=== PATIENT | female | born 1990 | race Caucasian/White ===

== ENCOUNTER 2023-06-26 14:57 | Emergency (ER) | payer OTHER ==
[~2023-06-26] VITALS: Ht 162.5 cm; Wt 116.8 kg
[2023-06-26] MEDS ORDERED: VENT7GM INH (15:16)
[2023-06-26] MEDS ORDERED: SEREVENT DISKU50 MCG INH (15:16)
[2023-06-26 15:56] LABS: BASO # 0.1 10*3/uL (0.0-0.1); BASO % 0.9 % (0.0-1.0); EOS # 0.1 10*3/uL (0.0-0.4); EOS % 2.5 % (1.0-4.0); HEMATOCRIT 42.2 % (37.0-47.0); LYMPH # 2.2 10*3/uL (1.3-4.4); LYMPH % 38.5 % (27.0-41.0); MEAN CELL VOLUME 88.7 fl (81.0-99.0); MEAN CORPUSCULAR HGB 28.4 pg (27.0-31.0); MEAN PLATELET VOLUME 12.2 fl (9.6-12.3); MONO # 0.4 10*3/uL (0.1-1.0); MONO % 7.3 % (3.0-9.0); NEUT # 2.8 10*3/uL (2.3-7.9); NEUT % 50.4 % (47.0-73.0); PLATELET COUNT AUTOMATED 177 10*3/uL (130-400); RED BLOOD COUNT 4.76 10*6/uL (4.10-5.10); RED CELL DISTRI WIDTH 13.4 % (0-14.5); WHITE BLOOD COUNT 5.6 10*3/uL (4.8-10.8)
[2023-06-26 16:10] LABS: ACT PARTIAL THROMBO TIME 28.9 SECONDS (20.0-32.1)
[2023-06-26 16:34] LABS: ALKALINE PHOSPHATASE 90 U/L (46-116); BUN 9 mg/dl (9-23); CHLORIDE 107 mmol/L (98-107); LIPASE 23 U/L (12-53); POTASSIUM 3.8 mmol/L (3.4-5.1); TOTAL PROTEIN 6.8 gm/dL (6.0-8.0)
[2023-06-26 16:37] LABS: BILIRUBIN Negative (Negative); BLOOD 1+ (Negative); CLARITY Cloudy (Clear); COLOR Yellow (Yellow); GLUCOSE Negative (Negative); KETONE Trace (Negative); LEUKO ESTERASE 1+ (Negative); NITRITE Negative (Negative); PH 5.5 (4.5-8.0); SPECIFIC GRAVITY 1.025 (1.001-1.030)
[2023-06-26 16:44] LABS: URINE AMPHETAMINES Negative (1000ng/ml); URINE BARBITURATES Negative (200ng/ml); URINE BENZODIAZEPINES Negative (200ng/ml); URINE CANNABINOIDS (THC) Positive (50ng/ml); URINE COCAINE Negative (300ng/ml); URINE METHADONE Negative (300ng/ml); URINE OPIATES Negative (300ng/ml); URINE PHENCYCLIDINE Negative (25ng/ml)
[2023-06-26 16:45] LABS: SGPT/ALT < 7 U/L (10-49)
[2023-06-26 16:51] LABS: BACTERIA 1+
[2023-06-26 16:52] LABS: MUCOUS TRACE; RBC 0-2 rbc/hpf (0-2)
[2023-06-26] MEDS ORDERED: CIPRO500 MG PO (18:02)
[2023-06-26] MEDS ORDERED: REGLAN10 M1 PO (18:16)
== END 2023-06-26 19:25 | disposition home or self-care (01) ==
LOC: ED 14:57
PROVIDERS: Internal Medicine
DX: N39.0 Urinary tract infection, site not specified (principal); R11.10 Vomiting, unspecified; F12.90 Cannabis use, unspecified, uncomplicated; J45.909 Unspecified asthma, uncomplicated; E11.9 Type 2 diabetes mellitus without complications; Z79.899 Other long term (current) drug therapy

== ENCOUNTER 2024-04-17 16:58 | Emergency (ER) | payer OTHER ==
[~2024-04-17] VITALS: Ht 162.5 cm; Wt 117.9 kg
[~2024-04-17 16:58] MED LIST: CIPRO500 MG PO; REGLAN10 M1 PO; SEREVENT DISKU50 MCG INH; VENT7GM INH
[2024-04-17 19:37] LABS: BASO # 0.1 10*3/uL (0.0-0.1); BASO % 0.8 % (0.0-1.0); EOS # 0.2 10*3/uL (0.0-0.4); EOS % 2.1 % (1.0-4.0); HEMATOCRIT 43.1 % (37.0-47.0); LYMPH # 2.6 10*3/uL (1.3-4.4); LYMPH % 34.1 % (27.0-41.0); MEAN CELL VOLUME 89.8 fl (81.0-99.0); MEAN CORPUSCULAR HGB 28.1 pg (27.0-31.0); MEAN CORPUSCULAR HGB CONC 31.3 g/dl (33.0-37.0); MEAN PLATELET VOLUME 12.2 fl (9.6-12.3); MONO # 0.6 10*3/uL (0.1-1.0); MONO % 7.5 % (3.0-9.0); NEUT # 4.2 10*3/uL (2.3-7.9); NEUT % 55.2 % (47.0-73.0); PLATELET COUNT AUTOMATED 231 10*3/uL (130-400); RED CELL DISTRI WIDTH 13.2 % (0-14.5); WHITE BLOOD COUNT 7.6 10*3/uL (4.8-10.8)
[2024-04-17 20:01] LABS: ALKALINE PHOSPHATASE 96 U/L (46-116); BUN 7 mg/dl (9-23); CHLORIDE 106 mmol/L (98-107); POTASSIUM 4.4 mmol/L (3.4-5.1)
[2024-04-17 20:02] LABS: SGPT/ALT < 7 U/L (5-49)
[2024-04-17 21:39] LABS: BILIRUBIN Negative (Negative); BLOOD Negative (Negative); CLARITY Cloudy (Clear); COLOR Yellow (Yellow); GLUCOSE Negative (Negative); KETONE Negative (Negative); LEUKO ESTERASE 3+ (Negative); NITRITE Negative (Negative)
[2024-04-17 21:47] LABS: BACTERIA 1+; EPITHELIAL CELLS TNTC; WBC 31-40 wbc/hpf (0-5)
[2024-04-17] MEDS ORDERED: VIBRAMYCIN100 MG PO (22:08)
== END 2024-04-17 22:16 | disposition home or self-care (01) ==
LOC: ED 16:58
PROVIDERS: Nurse Practitioner
DX: N39.0 Urinary tract infection, site not specified (principal); J45.909 Unspecified asthma, uncomplicated; E11.9 Type 2 diabetes mellitus without complications; F17.200 Nicotine dependence, unspecified, uncomplicated